=== PATIENT | female | born 1950 | race Two or more races ===

== ENCOUNTER 2016-05-24 10:19 | Observation (INO) | payer MEDICARE ==
[2016-05-24] MEDS ORDERED: ASPIRIN 81 MG TABLET, CHEWABLE PO ONE (10:41)
--- NOTE | 2016-05-24 10:41 | ER Document Report ---
ED Medical Screen (RME) - General Stated Complaint: CHEST PAIN Time seen by provider: 10:38 Mode of Arrival: Wheelchair Information source: Patient Notes: 66-year-old female presents to ED for funny feeling to the left side of her face. Started 2 weeks ago. States the time she gets short of breath and has some discomfort in her chest with pain in her right hand always been for 2 weeks. States she she went to urgent care this morning for the same symptoms and they sent her to the emergency room. I have greeted and performed a rapid initial assessment of this patient. A comprehensive ED assessment and evaluation of the patient, analysis of test results and completion of medical decision making process will be conducted by an additional ED providers. TRAVEL OUTSIDE OF THE [place] IN LAST 30 DAYS: No - Related Data Allergies/Adverse Reactions: Penicillins Allergy (Verified 12/26/15 15:11) Past Medical History - Past Medical History Cardiac Medical History: Reports: Hx Hypercholesterolemia, Hx Hypertension Pulmonary Medical History: Reports: Hx Asthma Endocrine Medical History: Reports: Hx Diabetes Mellitus Type 2 - Diet controlled. Patient is not sure if this is prediabetes or diabetes. Past Surgical History: Reports: Hx Section, Hx Cholecystectomy Physical Exam - Vital signs Vitals: Temp Pulse Resp BP Pulse Ox 98.9 F 75 16 138/61 H 95 05/24/16 10:35 05/24/16 10:35 05/24/16 10:35 05/24/16 10:35 05/24/16 10:35 Course - Vital Signs Vital signs: Temp Pulse Resp BP Pulse Ox 98.9 F 75 16 138/61 H 95 05/24/16 10:35 05/24/16 10:35 05/24/16 10:35 05/24/16 10:35 05/24/16 10:35
[2016-05-24 11:20] LABS: ABSOLUTE BASOPHILS # (AUTO) 0.1 10^3/uL (0.0-0.2); ABSOLUTE EOSINOPHILS # (AUTO) 0.1 10^3/uL (0.0-0.6); ABSOLUTE LYMPHOCYTES (AUTO) 1.9 10^3/uL (0.5-4.7); ABSOLUTE MONOCYTES (AUTO) 0.7 10^3/uL (0.1-1.4); ABSOLUTE NEUT (AUTO) 6.7 10^3/uL (1.7-8.2); BASOPHILS % (AUTO) 0.7 % (0-2); EOSINOPHILS % (AUTO) 1.3 % (0-6); HEMATOCRIT 38.6 % (36.0-47.0); HEMOGLOBIN 13.1 g/dL (12.0-15.5); HGB HCT DIFFERENCE 0.7; LYMPHOCYTES % (AUTO) 20.1 % (13-45); MEAN CORPUSCULAR HGB CONC 33.9 g/dL (32.0-36.0); MEAN CORPUSCULAR VOLUME 89 fl (80-97); MONOCYTES % (AUTO) 7.7 % (3-13); RED BLOOD COUNT 4.36 10^6/uL (3.72-5.28); SEGMENTED NEUTROPHILS % (AUTO) 70.2 % (42-78); WHITE BLOOD COUNT 9.5 10^3/uL (4.0-10.5)
[2016-05-24 11:34] LABS: PARTIAL THROMBOPLASTIN TIME 29.1 SEC (23.5-35.8)
[2016-05-24 11:36] LABS: ALANINE AMINOTRANSFERASE 34 U/L (9-52); ALBUMIN 4.3 g/dL (3.5-5.0); ALKALINE PHOSPHATASE 86 U/L (38-126); ANION GAP 10 (5-19); ASPARTATE AMINO TRANSFERASE 31 U/L (14-36); BILIRUBIN,DIRECT 0.1 mg/dL (0.0-0.4); BILIRUBIN,TOTAL 0.4 mg/dL (0.2-1.3); BLOOD UREA NITROGEN 11 mg/dL (7-20); CALCIUM 9.7 mg/dL (8.4-10.2); CARBON DIOXIDE 27 mmol/L (22-30); CHLORIDE 107 mmol/L (98-107); CREATINE KINASE 77 U/L (30-135); CREATININE RESULT 0.52 mg/dL (0.52-1.25); GLUCOSE 85 mg/dL (75-110); MAGNESIUM 2.2 mg/dL (1.6-2.3); POTASSIUM 4.1 mmol/L (3.6-5.0); SODIUM 143.8 mmol/L (137-145); TOTAL PROTEIN 7.3 g/dL (6.3-8.2)
[2016-05-24 11:47] LABS: CREATINE KINASE MB 0.36 ng/mL (<4.55); TROPONIN I < 0.012 ng/mL
--- NOTE | 2016-05-24 13:37 | EKG REPORT ---
SEVERITY:- BORDERLINE ECG - SINUS RHYTHM LVH BY VOLTAGE : Confirmed by: Mark Huff MD 24-May-2016 13:36:59
--- NOTE | 2016-05-24 16:32 | ER Document Report ---
ED Cardiac - General Chief Complaint: Chest Pain Stated Complaint: CHEST PAIN Mode of Arrival: Wheelchair Notes: Patient says she's been experiencing tightness in the anterior chest off and on over the last couple of weeks, seem to be worse yesterday and last night. When she has this tightness, she rests and it goes away. She does not have a history of any heart disease. Takes a baby aspirin daily. She denies associated shortness of breath or difficulty breathing. She did note left neck and facial twitching for the first time ever yesterday she had a mini stroke diagnosed last December in which she had numbness of her left face and neck and left side of her body, but she does not have any of those symptoms currently. She did not have twitching with that episode in December. TRAVEL OUTSIDE OF THE [place] IN LAST 30 DAYS: No - Related Data Allergies/Adverse Reactions: Penicillins Allergy (Verified 05/24/16 10:40) Past Medical History - General Information source: Patient - Social History Smoking Status: Never Smoker Chew tobacco use (# tins/day): No Frequency of alcohol use: None Drug Abuse: None Family History: Reviewed & Not Pertinent Patient has suicidal ideation: No Patient has homicidal ideation: No - Past Medical History Cardiac Medical History: Reports: Hx Hypercholesterolemia, Hx Hypertension Pulmonary Medical History: Reports: Hx Asthma Endocrine Medical History: Denies: Hx Diabetes Mellitus Type 2 - Diet controlled. Patient is not sure if this is prediabetes or diabetes. Past Surgical History: Reports: Hx Section, Hx Cholecystectomy Review of Systems - Review of Systems Notes: REVIEW OF SYSTEMS: CONSTITUTIONAL : Denies fever. EENT: Denies eye, ear, nose or mouth or throat pain or other symptoms. CARDIOVASCULAR: See history of present illness. RESPIRATORY: Denies cough, chest congestion, or shortness of breath. GASTROINTESTINAL: Denies abdominal pain or nausea, vomiting, or diarrhea. GENITOURINARY: Denies difficulty or painful urinating, urinary frequency, blood in urine. MUSCULOSKELETAL: Denies back or neck pain. Denies joint pain or swelling. SKIN: Denies rash or skin lesions. NEUROLOGICAL: Denies LOC or altered mental status. Denies headache. Denies sensory loss or motor deficits. See history of present illness. ALL OTHER SYSTEMS REVIEWED AND NEGATIVE. Physical Exam - Vital signs Vitals: Temp Pulse Resp BP Pulse Ox 98.9 F 75 16 138/61 H 95 03/20/17 10:35 05/24/16 10:35 05/24/16 10:35 05/24/16 10:35 05/24/16 10:35 Interpretation: Normal - Notes Notes: PHYSICAL EXAMINATION: GENERAL: Well-appearing, in no acute distress. Vital signs all essentially normal. HEAD: Atraumatic, normocephalic. EYES: Pupils equal round and reactive to light, extraocular movements intact. ENT: oropharynx clear without exudates. Moist mucous membranes. No facial asymmetry. NECK: Normal range of motion, supple. No bruits heard. LUNGS: Breath sounds clear and equal bilaterally. HEART: Regular rate and rhythm without murmurs. ABDOMEN: Soft, nontender. No guarding or rebound. BACK: No tenderness throughout entire back. EXTREMITIES: Normal range of motion without pain. NEUROLOGICAL: Normal speech, normal gait. Normal sensory, motor, and reflex exams. Awake, alert, and oriented x3. Cranial nerves normal. SKIN: Warm, dry, no rashes. Course - Re-evaluation Re-evalutation: 05/24/16 16:52 Patient's workup is essentially normal. However, her symptoms are very suggestive of angina. I've spoken with the hospitalist, Dr. Matias, who agrees for the patient to be an observation stay in telemetry. Patient and family made aware. - Vital Signs Vital signs: Temp Pulse Resp BP Pulse Ox 98.9 F 75 16 138/66 H 96 05/24/16 10:35 05/24/16 10:35 05/24/16 16:23 05/24/16 16:23 05/24/16 16:24 - Laboratory Result Diagrams: 05/24/16 10:50 05/24/16 10:50 - Diagnostic Test Radiology results interpreted by me: 05/24/16 16:31 Chest x-ray is normal. - EKG Interpretation by Ne EKG shows normal: Sinus rhythm Rate: Normal Rhythm: NSR - At 61 No acute changes of ischemia or STEMI. Discharge - Discharge Clinical Impression: Chest pain Qualifiers: Chest pain type: unspecified Qualified Code(s): R07.9 - Chest pain, unspecified Condition: Stable Disposition: ADMITTED OBSERVATION Admitting Provider: Hospitalist Unit Admitted: Telemetry
[2016-05-24] MEDS ORDERED: ONDANSETRON 4 MG TAB.RAPDIS PO PRN (18:08)
[2016-05-24] MEDS ORDERED: ACETAMINOPHEN 325 MG TABLET PO PRN (18:08)
[2016-05-24] MEDS ORDERED: ONDANSETRON HCL INJ/PF 4 MG/2 ML SDV IV PRN (18:08)
[2016-05-24] MEDS ORDERED: DEXTROSE 50%-WATER 25 GM/50 ML DISP.SYRIN IV PRN ×2 (18:17)
[2016-05-24] MEDS ORDERED: INSULIN LISPRO 100 UNIT/ML 3 ML VIAL SUBCUT PRN (18:17)
[2016-05-24] MEDS ORDERED: DEXTROSE 40% GEL 15 GM TUBE PO PRN ×2 (18:17)
[2016-05-24] MEDS ORDERED: GLUCAGON,HUMAN RECOMB 1 MG INJ IM PRN (18:17)
[2016-05-24] MEDS ORDERED: ALBUTEROL SULFATE HFA (90 MCG/PUFF) 8 GM MDI (1 MDI/ER DISP) IH PRN (18:17)
[2016-05-24] MEDS ORDERED: ALBUTEROL SULFATE HFA (90 MCG/PUFF) 200 PUFF/8.5 GM MDI IH PRN (18:26)
--- NOTE | 2016-05-24 18:26 | PDOC H&P ---
History of Present Illness Admission Date/PCP: 05/24/16 17:22 Patient complains of: Chest pain History of Present Illness: ERIC RICHTER is a 66 year old female who has a history of hypertension hyperlipidemia and a question with history diabetes who presents with a two- week history of chest pain. Patient reports that over the last 2 weeks she's had intermittent chest pain that she describes as a sharp substernal pain that radiates up into her left neck. The patient reports this occurs at rest and also with exertion. The last session was yesterday when she was walking and that she had reduction the pain with rest. Patient also reports that she's had episodes of chest pain that occurs after she eats and she begins coughing having choking sensation. The patient does have acid reflux but does not take anything at this time for it. Patient reports the pain today was a 8 out of 10. She does not have any shortness of breath. She did not have any palpitations or tachycardia. She denies any orthopnea or PND. The patient does take aspirin and has been compliant with her medications. Patient is uncertain as to whether she has diabetes. She's been told previously that she did but she reports her blood sugars have been normal in the past. Past Medical History Cardiac Medical History: Reports: Hyperlipidema, Hypertension Pulmonary Medical History: Reports: Asthma Endocrine Medical History: Denies: Diabetes Mellitus Type 2 - Diet controlled. Patient is not sure if this is prediabetes or diabetes. Renal/ Medical History: Reports: None Malignancy Medical History: Reports: None GI Medical History: Reports: Gastroesophageal Reflux Disease Musculoskeltal Medical History: Reports: None Skin Medical History: Reports: None Hematology: Reports: None Infectious Medical History: Reports: None Past Surgical History Past Surgical History: Reports: Section, Cholecystectomy Social History Information Source: Patient Lives with: Spouse/Significant other Smoking Status: Never Smoker Frequency of Alcohol Use: None Hx Recreational Drug Use: No Drugs: None Hx Prescription Drug Abuse: No - Advance Directive Resuscitation Status: Full Code Surrogate healthcare decision maker:: Family History Family History: Mother at age 82 and had coronary artery disease. Father's health history is unknown. Parental Family History Reviewed: Yes Children Family History Reviewed: No Sibling(s) Family History Reviewed.: No Medication/Allergy Home Medications: Albuterol Sulfate [Ventolin Hfa] 2 puff IH Q4HP PRN 05/24/16 Aspirin [Aspirin EC] 81 mg PO DAILY 05/24/16 Fluticasone/Salmeterol [Advair HFA 230-21 mcg Inhaler] 2 puff IH DAILY 05/24/16 Losartan Potassium [Cozaar 50 mg Tablet] 50 mg PO DAILY 05/24/16 Simvastatin [Zocor 40 mg Tablet] 40 mg PO QHS 05/24/16 Allergies/Adverse Reactions: Penicillins Allergy (Verified 05/24/16 10:40) Review of Systems Constitutional: ABSENT: chills, fever(s), headache(s), weight gain, weight loss Eyes: ABSENT: visual disturbances Ears: ABSENT: hearing changes Cardiovascular: PRESENT: as per HPI Respiratory: PRESENT: cough. ABSENT: dyspnea, hemoptysis, sputum Gastrointestinal: PRESENT: dysphagia, heartburn. ABSENT: melena, nausea, vomiting Genitourinary: ABSENT: dysuria, hematuria Integumentary: ABSENT: rash, wounds Neurological: ABSENT: abnormal gait, abnormal speech, confusion, dizziness, focal weakness, syncope Psychiatric: ABSENT: anxiety, depression Endocrine: ABSENT: cold intolerance, heat intolerance, polydipsia, polyuria Hematologic/Lymphatic: ABSENT: easy bleeding, easy bruising Physical Exam Vital Signs: Temp Pulse Resp BP Pulse Ox 98.9 F 75 16 138/66 H 96 05/24/16 10:35 05/24/16 10:35 05/24/16 16:23 05/24/16 16:23 05/24/16 16:24 General appearance: PRESENT: no acute distress, morbidly obese Head exam: PRESENT: atraumatic, normocephalic Eye exam: PRESENT: conjunctiva pink, EOMI, PERRLA. ABSENT: scleral icterus Ear exam: PRESENT: normal external ear exam Mouth exam: PRESENT: moist, tongue midline Neck exam: ABSENT: carotid bruit, JVD, lymphadenopathy, thyromegaly Respiratory exam: PRESENT: clear to auscultation [place]. ABSENT: rales, rhonchi, wheezes Cardiovascular exam: PRESENT: RRR. ABSENT: diastolic murmur, rubs, systolic murmur Pulses: PRESENT: normal dorsalis pedis pul Vascular exam: PRESENT: normal capillary refill GI/Abdominal exam: PRESENT: normal bowel sounds, soft. ABSENT: distended, guarding, mass, organolmegaly, rebound, tenderness Rectal exam: PRESENT: deferred Extremities exam: ABSENT: calf tenderness, clubbing, pedal edema Neurological exam: PRESENT: alert, awake, oriented to person, oriented to place , oriented to time, oriented to situation, CN II-XII grossly intact. ABSENT: motor sensory deficit Psychiatric exam: PRESENT: appropriate affect Skin exam: PRESENT: dry, intact, warm. ABSENT: cyanosis, rash Results Impressions: Chest X-Ray 05/24/16 10:41 IMPRESSION: NO SIGNIFICANT RADIOGRAPHIC FINDING IN THE CHEST. Assessment & Plan - Diagnosis (1) Chest pain Qualifiers: Chest pain type: unspecified Qualified Code(s): R07.9 - Chest pain, unspecified Is this a current diagnosis for this admission?: YesPlan: Is not clear whether this chest pain is cardiac or from acid reflux. Patient does have exertional pain is relieved with rest but also has pain that occurs after eating with episodes of coughing. We will monitor telemetry and check serial cardiac enzymes. Will order a Lexiscan stress test to be done if her enzymes are negative. Patient's already on aspirin and will continue with that. We'll start on Pepcid also. (2) Hyperlipidemia Is this a current diagnosis for this admission?: YesPlan: Continue with Zocor. (3) Hypertension Is this a current diagnosis for this admission?: YesPlan: We'll continue with Cozaar. (4) [id number] diabetes mellitus without complications Is this a current diagnosis for this admission?: YesPlan: Is not clear whether she has diabetes or not. Will check fingerstick blood sugars and cover with sliding scale insulin if needed. (5) Obesity (BMI 30-39.9) Is this a current diagnosis for this admission?: Yes (6) DVT prophylaxis Is this a current diagnosis for this admission?: YesPlan: Not indicated as she is ambulatory. (7) Full code status Is this a current diagnosis for this admission?: Yes - Time Time Spent: 50 to 70 Minutes - Plan Summary Plan Summary: Patient is admitted as an observation.
[2016-05-24 19:31] LABS: CREATINE KINASE MB 0.32 ng/mL (<4.55)
[2016-05-24 19:38] LABS: TROPONIN I < 0.012 ng/mL
[2016-05-24] MEDS ORDERED: SIMVASTATIN 40 MG TABLET PO SCH (22:00)
[2016-05-24] MEDS: FAMOTIDINE 20 MG TABLET PO SCH (23:59)
[2016-05-25 00:46] LABS: CREATINE KINASE MB < 0.22 ng/mL (<4.55); TROPONIN I < 0.012 ng/mL
[2016-05-25 07:22] LABS: HEMATOCRIT 36.9 % (36.0-47.0); HEMOGLOBIN 12.6 g/dL (12.0-15.5); HGB HCT DIFFERENCE 0.9; MEAN CORPUSCULAR HEMOGLOBIN 30.2 pg (27.0-33.4); MEAN CORPUSCULAR HGB CONC 34.1 g/dL (32.0-36.0); MEAN CORPUSCULAR VOLUME 89 fl (80-97); RED BLOOD COUNT 4.17 10^6/uL (3.72-5.28); RED CELL DISTRIBUTION WIDTH 13.2 % (11.5-14.0); WHITE BLOOD COUNT 8.8 10^3/uL (4.0-10.5)
[2016-05-25 07:41] LABS: ANION GAP 13 (5-19); BLOOD UREA NITROGEN 12 mg/dL (7-20); CALCIUM 8.9 mg/dL (8.4-10.2); CARBON DIOXIDE 24 mmol/L (22-30); CHLORIDE 107 mmol/L (98-107); CREATINE KINASE 65 U/L (30-135); CREATININE RESULT 0.57 mg/dL (0.52-1.25); GLUCOSE 92 mg/dL (75-110); MAGNESIUM 2.2 mg/dL (1.6-2.3); POTASSIUM 4.3 mmol/L (3.6-5.0); SODIUM 144.4 mmol/L (137-145)
[2016-05-25 07:54] LABS: CREATINE KINASE MB 0.23 ng/mL (<4.55)
[2016-05-25 08:00] LABS: TROPONIN I < 0.012 ng/mL
[2016-05-25] MEDS: FAMOTIDINE 20 MG TABLET PO SCH (09:44)
[2016-05-25] MEDS ORDERED: ASPIRIN 81 MG TABLET, ENT COATED PO SCH (10:00)
[2016-05-25] MEDS ORDERED: LOSARTAN POTASSIUM 50 MG TABLET PO SCH (10:00)
[2016-05-25] MEDS ORDERED: (PENDING PHARMACY ID) (Fluticasone/Salmeterol [Advair Hfa 230-21 Mcg Inhaler] 2 PUFF) IH SCH (10:00)
--- NOTE | 2016-05-25 13:09 | EKG REPORT ---
SEVERITY:- NORMAL ECG - SINUS RHYTHM : Confirmed by: Mark Huff MD 25-May-2016 13:08:39
[2016-05-25] MEDS ORDERED: REGADENOSON INJ 0.4 MG/5 ML DISP.SYRIN IV ONE (14:41)
[2016-05-25] MEDS ORDERED: AMINOPHYLLINE INJ/PF 250 MG/10 ML SDV IV ONE (14:41)
--- NOTE | 2016-05-25 18:01 | DRAGON STRESS TEST REPORT ---
INTRAVENOUS LEXISCAN CARDIOLITE STRESS TEST USING SINGLE PHOTON EMMISION COMPUTERIZED TOMOGRAPHIC. DATE OF PROCEDURE: May 25, 2016 INDICATION : Chest pain CARDIAC RISK FACTORS: Diabetes, hypertension, dyslipidemia RESTING EKG: Sinus rhythm without any baseline ST segment changes STRESS EKG: No significant changes noted with LexiScan bolus REASON FOR TERMINATION: Protocol. PROCEDURE REPORT: Baseline heart rate 92 beats per minute with blood pressure of 141/66. Patient had no significant complaints. Heart rate at 2 minutes post bolus 113 with a blood pressure of 154/66. 3 minutes post bolus heart rate 107 with blood pressure of 156/66. No significant EKG changes were noted. Patient had no significant complaints during the procedure or postprocedure. CONCLUSIONS: Normal EKG and hemodynamic response to IV LexiScan. NUCLEAR DATA: At rest the patient was given 13.96 millicuries of technetium 99 sestamibi injected intravenously. As per protocol rest gated SPECT images were obtained. Subsequently the patient was given intravenous LexiScan at a dose of 0.4 mg in 5 mL intravenously, followed by flush with normal saline. Subsequently the stress dose of 38.7 millicuries of technetium 99 sestamibi was injected intravenously. As per protocol stress gated images were obtained. NUCLEAR INTERPRETATION: Both raw and processed data were used for interpretation. Visual, qualitative, computer-generated quantitative data was used. There was good myocardial uptake of technetium compound. Motion artifact and soft tissue attenuations were noted. Increased visceral uptake was noted. No definitive areas of transient perfusion defect noted. No definitive areas of fixed perfusion defect or scars noted. EKG gated imaging showed LV EF at 69 %, rest and stress gated EF similar visually. T. I D. ratio was 1.10. Lung heart ratio noted to be within normal limits 0.30. No significant extracardiac and abnormal radiotracer activities were noted. RV free wall uptake was noted to be WNL. IMPRESSION: Also refer to comments under nuclear interpretation. Also test results needs to be interpreted in the context of pretest probability. 1. There is no definitive scintigraphic evidence of LexiScan induced myocardial ischemia. 2. There is no definitive scintigraphic evidence of myocardial infarction/scar. 3. EKG gated imaging shows left ejection fraction of approximately 69 %. 4. Clinical correlation requested as occasionally single vessel disease or balanced ischemia could be missed. In approximately 10% of the cases Lexiscan may not cause adequate vasodilatory stress. RECOMMENDATIONS: Aggressive risk factor modification, medical therapy. Clinical correlation with echocardiogram derived ejection fraction. Inability to exercise by itself can lead to increased cardiovascular event risks. Consider cardiology consultation and or follow-up if clinically indicated. I AM AVAILABLE FOR CARDIOLOGY CONSULTATION AND FOLLOWUP IF REQUESTED BY PMD Irvin Husain M.D., [facility] [employer], Board certified in cardiovascular diseases, Nuclear cardiology, Echocardiography Cardiac CT and cardiac MRI Ph. [phone] [facility]
[2016-05-25 18:02] VITALS: BP 122/57
--- NOTE | 2016-05-25 18:14 | PDOC DISCHARGE SUMMARY ---
General - Admit/Disc Date/PCP Admission Date/Primary Care Provider: 05/24/16 18:08 Discharge Date: 05/25/16 - Discharge Diagnosis (1) Chest pain Is this a current diagnosis for this admission?: Yes (2) [id number] diabetes mellitus without complications Is this a current diagnosis for this admission?: Yes (3) Hyperlipidemia Is this a current diagnosis for this admission?: Yes (4) Hypertension Is this a current diagnosis for this admission?: Yes - Additional Information Resuscitation Status: Full Code Discharge Diet: Cardiac - low fat, low salt, Diabetic - no concentrtated sweets Discharge Activity: Activity As Tolerated, Balance Activity w/Rest Home Medications: Albuterol Sulfate [Ventolin Hfa] 2 puff IH Q4HP PRN 05/24/16 Aspirin [Aspirin EC] 81 mg PO DAILY 05/24/16 Fluticasone/Salmeterol [Advair HFA 230-21 mcg Inhaler] 2 puff IH DAILY 05/24/16 Losartan Potassium [Cozaar 50 mg Tablet] 50 mg PO DAILY 05/24/16 Simvastatin [Zocor 40 mg Tablet] 40 mg PO QHS 05/24/16 History of Present Illness Patient complains of: Chest pain History of Present Illness: ERIC RICHTER is a 66 year old female, history of hypertension, hyperlipidemia, type II diabetes mellitus diet-controlled process to the hospital because of intermittent chest pain. Reportedly the patient has acid reflux as well. The patient went to the emergency room for evaluation and was referred for observation. For details please refer to history and physical examination performed by the admitting physician. Hospital Course Hospital Course: The patient was admitted to observation. Serial cardiac enzymes were obtained and they were negative. The patient was placed on oxygen, as well as aspirin. Pepcid was given. Patient's chest pain resolved. Eventually when the enzymes were negative a stress test was performed and reportedly no reversible ischemia. The patient improved. Cardiology reports that the patient was lost to follow-up and recommended outpatient evaluation. The rest of the hospital stays unremarkable. Physical Exam Vital Signs: Temp Pulse Resp BP Pulse Ox 98.6 F 73 16 122/57 L 97 05/25/16 18:00 05/25/16 18:00 05/25/16 18:00 05/25/16 18:00 05/25/16 18:00 Intake & Output 05/24/16 05/25/16 05/26/16 06:59 06:59 06:59 Weight 85.3 kg General appearance: PRESENT: no acute distress, cooperative, obese Head exam: PRESENT: normocephalic Eye exam: PRESENT: conjunctiva pink, EOMI Mouth exam: PRESENT: moist, neck supple Neck exam: ABSENT: JVD Respiratory exam: PRESENT: clear to auscultation [place] Cardiovascular exam: PRESENT: RRR. ABSENT: gallop GI/Abdominal exam: PRESENT: soft. ABSENT: distended, tenderness Extremities exam: ABSENT: pedal edema Neurological exam: PRESENT: alert, awake, oriented to person, oriented to place , oriented to time, oriented to situation Skin exam: PRESENT: dry, warm. ABSENT: cyanosis Results Laboratory Results: 05/25/16 06:30 05/25/16 06:30 05/25/16 05/25/16 06:30 06:30 WBC 8.8 RBC 4.17 Hgb 12.6 Hct 36.9 MCV 89 MCH 30.2 MCHC 34.1 RDW 13.2 Plt Count 220 Sodium 144.4 Potassium 4.3 Chloride 107 Carbon Dioxide 24 Anion Gap 13 BUN 12 Creatinine 0.57 Est GFR ( Amer) > 60 Est GFR (Non-Af Amer) > 60 Glucose 92 Calcium 8.9 Magnesium 2.2 05/25/16 05/25/16 05/25/16 00:02 00:02 06:30 Creatine Kinase 67 65 CK-MB (CK-2) < 0.22 Troponin I < 0.012 05/25/16 06:30 Creatine Kinase CK-MB (CK-2) 0.23 Troponin I < 0.012 Impressions: Chest X-Ray 05/24/16 10:41 IMPRESSION: NO SIGNIFICANT RADIOGRAPHIC FINDING IN THE CHEST. Qualifiers PATEINT BEING DISCHARGED WITH ANY OF THE FOLLOWING DIAGNOSIS?: No Plan Discharge Plan: Follow-up with primary care physician in one week. Follow-up with cardiology service Dr. Husain in 1-2 weeks. Time Spent: Less than 30 Minutes
== END 2016-05-25 18:21 | disposition home or self-care (01) ==
LOC: ER 10:19 → UNDOADMOB 17:22 → EH 17:22 → 4W 05-25 00:22
PROVIDERS: ADMIT Internal Medicine; ATTEND Internal Medicine
DX: R07.9 Chest pain, unspecified (principal); E11.9 Type 2 diabetes mellitus without complications; E78.5 Hyperlipidemia, unspecified; I10 Essential (primary) hypertension; K21.9 Gastro-esophageal reflux disease without esophagitis; J45.909 Unspecified asthma, uncomplicated; Z82.49 Family history of ischemic heart disease and other diseases of the circulatory system; E66.9 Obesity, unspecified; Z68.30 Body mass index [BMI] 30.0-30.9, adult; Z86.718 Personal history of other venous thrombosis and embolism; Z79.01 Long term (current) use of anticoagulants
CPT/HCPCS: 93005 ×2; 99285; 36415 ×2; 82553 ×2; 82962; 82550 ×2; 83735 ×2; 85025; 85027; 85610; 85730; 80048; 80053; 84484 ×2; 93017; 71020; 78452; 93010 ×2; G0378 ×3; A9500; J2785; A9270 ×6; J3490; J0280; Q9969

== ENCOUNTER 2016-06-03 21:37 | Emergency (ER) | payer MEDICARE ==
[2016-06-03 22:58] VITALS: BP 137/53
[2016-06-04 02:06] LABS: ABSOLUTE BASOPHILS # (AUTO) 0.1 10^3/uL (0.0-0.2); ABSOLUTE EOSINOPHILS # (AUTO) 0.3 10^3/uL (0.0-0.6); ABSOLUTE LYMPHOCYTES (AUTO) 2.6 10^3/uL (0.5-4.7); ABSOLUTE MONOCYTES (AUTO) 0.9 10^3/uL (0.1-1.4); ABSOLUTE NEUT (AUTO) 8.6 10^3/uL (1.7-8.2); EOSINOPHILS % (AUTO) 2.1 % (0-6); HEMATOCRIT 39.7 % (36.0-47.0); HEMOGLOBIN 13.6 g/dL (12.0-15.5); HGB HCT DIFFERENCE 1.1; LYMPHOCYTES % (AUTO) 20.6 % (13-45); MEAN CORPUSCULAR HEMOGLOBIN 30.5 pg (27.0-33.4); MEAN CORPUSCULAR HGB CONC 34.2 g/dL (32.0-36.0); MEAN CORPUSCULAR VOLUME 89 fl (80-97); MONOCYTES % (AUTO) 6.9 % (3-13); RED BLOOD COUNT 4.46 10^6/uL (3.72-5.28); SEGMENTED NEUTROPHILS % (AUTO) 69.4 % (42-78); WHITE BLOOD COUNT 12.4 10^3/uL (4.0-10.5)
[2016-06-04 02:14] LABS: APPEARANCE,URINE CLEAR; BILIRUBIN,URINE NEGATIVE (NEGATIVE); GLUCOSE, URINE NEGATIVE (NEGATIVE); KETONES,URINE NEGATIVE (NEGATIVE); LEUKOCYTE ESTERASE,URINE NEGATIVE (NEGATIVE); NITRITE,URINE NEGATIVE (NEGATIVE); PROTEIN,URINE NEGATIVE (NEGATIVE); URINE SPECIFIC GRAVITY 1.009; UROBILINOGEN,URINE NEGATIVE mg/dL (<2.0)
--- NOTE | 2016-06-04 02:26 | ER Document Report ---
ED General - General Chief Complaint: Flank Pain Stated Complaint: FLANK PAIN Time seen by provider: 02:25 Mode of Arrival: Ambulatory Information source: Patient TRAVEL OUTSIDE OF THE [place] IN LAST 30 DAYS: No - HPI Notes: Patient presents with report of left upper quadrant pain with some radiation through to the back onset at 4 AM this morning waking her up. The patient states pain was mild and then progressed during the course the day. She states the pain is somewhat intermittent. She denies any back injury or fever or chills. She describes a very minor cough. She denies any severe constipation. She does feel somewhat bloated through the abdomen. She previously had some nausea, but currently denies. Patient was just admitted into the hospital 10 days ago for chest pain and had a negative cardiac stress test performed. - Related Data Allergies/Adverse Reactions: Penicillins Allergy (Verified 05/24/16 10:40) Past Medical History - Social History Smoking Status: Never Smoker Chew tobacco use (# tins/day): No Frequency of alcohol use: None Drug Abuse: None Family History: Reviewed & Not Pertinent Patient has suicidal ideation: No Patient has homicidal ideation: No - Past Medical History Cardiac Medical History: Reports: Hx Hypercholesterolemia, Hx Hypertension Pulmonary Medical History: Reports: Hx Asthma Endocrine Medical History: Denies: Hx Diabetes Mellitus Type 2 - Diet controlled. Patient is not sure if this is prediabetes or diabetes. Renal/ Medical History: Denies: Hx Peritoneal Dialysis GI Medical History: Reports: Hx Gastroesophageal Reflux Disease Past Surgical History: Reports: Hx Section, Hx Cholecystectomy - Immunizations Hx Diphtheria, Pertussis, Tetanus Vaccination: Yes Review of Systems - Review of Systems Notes: REVIEW OF SYSTEMS: CONSTITUTIONAL : Denies fever, chills, or sweats. EENT: Denies eye, ear, throat, or mouth pain or symptoms. Denies nasal or sinus congestion or discharge. Denies throat, tongue, or mouth swelling or difficulty swallowing. CARDIOVASCULAR: Denies chest pain. Denies palpitations or racing or irregular heart beat. Denies ankle edema. RESPIRATORY: Denies shortness of breath, difficulty breathing, or wheezing. GASTROINTESTINAL: Denies vomiting, or diarrhea. Denies blood in vomitus, stools, or per rectum. Denies black, tarry stools. Denies constipation. GENITOURINARY: Denies difficulty urinating, painful urination, burning, frequency, blood in urine, or discharge. FEMALE GENITOURINARY: Denies vaginal bleeding, heavy or abnormal periods, irregular periods. Denies vaginal discharge or odor. MUSCULOSKELETAL: Denies neck pain or stiffness. Denies joint pain or swelling. SKIN: Denies rash, lesions or sores. HEMATOLOGIC : Denies easy bruising or bleeding. LYMPHATIC: Denies swollen, enlarged glands. NEUROLOGICAL: Denies confusion or altered mental status. Denies passing out or loss of consciousness. Denies dizziness or lightheadedness. Denies headache. Denies weakness or paralysis or loss of use of either side. Denies problems with gait or speech. Denies sensory loss, numbness, or tingling. Denies seizures. PSYCHIATRIC: Denies anxiety or stress. Denies depression, suicidal ideation, or homicidal ideation. ALL OTHER SYSTEMS REVIEWED AND NEGATIVE. Dictation was performed using [employer] voice recognition software Physical Exam - Vital signs Vitals: Temp Pulse Resp BP Pulse Ox 98.9 F 75 20 137/53 H 100 06/03/16 22:54 06/03/16 22:54 06/03/16 22:54 06/03/16 22:54 06/03/16 22:54 - Notes Notes: PHYSICAL EXAMINATION: GENERAL: Well-appearing, well-nourished and in no acute distress. HEAD: Atraumatic, normocephalic. EYES: Pupils equal round and reactive to light, extraocular movements intact, conjunctiva are normal. ENT: Nares patent, oropharynx clear without exudates. Moist mucous membranes. NECK: Normal range of motion, supple without lymphadenopathy LUNGS: Breath sounds clear to auscultation bilaterally and equal. No wheezes rales or rhonchi. HEART: Regular rate and rhythm without murmurs ABDOMEN: Soft obese abdomen. No guarding, no rebound. No masses appreciated. Patient is tender left upper quadrant and especially along the lower costal margin on the left. There is no gross bony deformity or crepitance. There is no erythema. Female : deferred Musculoskeletal: Normal range of motion, no pitting or edema. No cyanosis. Patient has pain to the left mid to lower back region. This pain is above the CVA region. There is no crepitance of bony deformity or significant erythema noted. NEUROLOGICAL: Cranial nerves grossly intact. Normal speech, normal gait. Normal sensory, motor exams PSYCH: Normal mood, normal affect. SKIN: Warm, Dry, normal turgor, no rashes or lesions noted. Course - Re-evaluation Re-evalutation: 06/04/16 04:25 06/04/16 04:27 Patient was given morphine and Zofran with relief of her discomfort. No evidence for acute NH or ischemia or pneumonia or suggestion for pulmonary embolus or diverticulitis or GI bleed or hepatitis or pancreatitis. Question gastritis, and the patient has just started Pepcid but is only had 1 dose after her recent admission where they found that reflux and gastritis was more accounting for her chest pain. Also question whether not bronchitis and costochondritis could be accounting for the patient's pain with a recent cough. We'll cover with Zithromax for possible bronchitis given the cough. - Vital Signs Vital signs: Temp Pulse Resp BP Pulse Ox 98.9 F 75 20 137/53 H 100 06/03/16 22:54 06/03/16 22:54 06/03/16 22:54 06/03/16 22:54 06/03/16 22:54 - Laboratory Result Diagrams: 06/04/16 01:55 06/04/16 01:55 Laboratory results interpreted by me: 06/04/16 06/04/16 06/04/16 01:55 01:55 01:55 WBC 12.4 H Absolute Neutrophils 8.6 H Sodium 145.5 H AST 58 H Urine Blood SMALL H - EKG Interpretation by Al EKG shows normal: Sinus rhythm Additional EKG results interpreted by me: 06/04/16 03:24 EKG as interpreted by ut showed normal sinus rhythm of 70. There is no gross evidence for acute NH or ischemia identified. There is LVH noted. There is no change from previous EKG reviewed from 05/25/16. Discharge - Discharge Clinical Impression: Costochondritis, acute, Bronchitis Abdominal pain Qualifiers: Abdominal location: left upper quadrant Qualified Code(s): R10.12 - Left upper quadrant pain Condition: Stable Disposition: HOME, SELF-CARE Instructions: Abdominal Pain ([facility]) Additional Instructions: Bronchitis You have acute bronchitis. This disease is an infection or inflammation of the air passageways in your lungs. Symptoms usually include cough, low grade fever, shortness of breath, and wheezing. The cough usually persists for a couple of weeks. Most cases of bronchitis get better without antibiotics. We prescribe antibiotics when we believe bacteria are damaging your airways, or if there's high risk the bronchitis will worsen into pneumonia. Increase your fluid intake. A cool mist humidifier may make your lungs more comfortable. An expectorant (cough medicine that loosens phlegm) can help. If you smoke, STOP!!! Recovery from bronchitis can be somewhat slow, but you should see improvement within a day or two. Repeated episodes of bronchitis may result in lung damage -- for example, chronic bronchitis, recurrent pneumonias, or emphysema. Call the doctor if you develop increasing fever, shortness of breath, chest pain, bloody sputum, or otherwise worsen. If you have not improved at all after several days, contact the physician. Costochondritis Your chest pain is coming from the rib cartilages in the chest wall. This is often caused by subtle straining of the ribs near the breastbone. The strain can occur from a mild injury, coughing or sneezing with a "cold," vigorous vomiting, or even from rib compression while sleeping. Often the pain doesn't begin until a couple of days after the strain. Persons with arthritis are especially prone to this type of pain, due to inflammation of the cartilage joints near the breast bone. But often, there is no clear reason why it happens. Rest from strenuous physical activity. This kind of chest pain is usually made worse by movement of the chest. Depending on the symptoms, we may prescribe medicine for pain and inflammation. Apply gentle warmth to the painful area for 15 minutes every hour or two. You should call contact the doctor immediately if things change. Further evaluation is needed if you develop a fever or cough, if the nature of the pain changes, or if you become short of breath. Gastritis You have an inflammation of the stomach called gastritis. This commonly causes upper abdominal pain, nausea, and vomiting. In severe cases, bleeding of the stomach lining can occur. Gastritis can be caused by bacteria or viruses , alcohol, or stomach-irritating drugs. Begin with sips of clear liquids. Take increasing amounts of fluid over the first 24 hours. Then start small amounts of bland foods (such as dry toast , applesauce, mashed potato). Gradually resume your usual diet. You should take antacids every two hours until the pain has subsided. Acid -suppressing drugs may be prescribed as well. Avoid aspirin, caffeine, tobacco , and alcohol. If the abdominal pain worsens, or there is evidence of major bleeding in the stomach (such as black, tarry stool, bloody or black vomit, or lightheadedness), you should return immediately. Call the doctor if you aren't improved in 24 to 36 hours. Prescriptions: Azithromycin [Zithromax 250 mg Tablet] 250 mg PO DAILY #4 tablet
[2016-06-04 02:28] LABS: ALANINE AMINOTRANSFERASE 34 U/L (9-52); ALBUMIN 4.5 g/dL (3.5-5.0); ALKALINE PHOSPHATASE 99 U/L (38-126); ANION GAP 14 (5-19); ASPARTATE AMINO TRANSFERASE 58 U/L (14-36); BILIRUBIN,DIRECT 0.3 mg/dL (0.0-0.4); BILIRUBIN,TOTAL 0.4 mg/dL (0.2-1.3); BLOOD UREA NITROGEN 10 mg/dL (7-20); CALCIUM 9.4 mg/dL (8.4-10.2); CARBON DIOXIDE 26 mmol/L (22-30); CHLORIDE 106 mmol/L (98-107); CREATININE RESULT 0.56 mg/dL (0.52-1.25); GLUCOSE 105 mg/dL (75-110); POTASSIUM 4.1 mmol/L (3.6-5.0); SODIUM 145.5 mmol/L (137-145); TOTAL PROTEIN 8.1 g/dL (6.3-8.2)
[2016-06-04] MEDS ORDERED: ONDANSETRON HCL INJ/PF 4 MG/2 ML SDV IV ONE (02:41)
[2016-06-04] MEDS ORDERED: MORPHINE SULFATE 10 MG/ML INJ IV ONE (02:42)
[2016-06-04] MEDS ORDERED: AZITHROMYCIN 250 MG TABLET PO ONE (04:25)
--- NOTE | 2016-06-04 10:53 | EKG REPORT ---
SEVERITY:- BORDERLINE ECG - SINUS RHYTHM LVH BY VOLTAGE : Confirmed by: Irvin Husain 04-Jun-2016 10:53:05
== END 2016-06-04 05:12 | disposition home or self-care (01) ==
LOC: ER 21:37
DX: M94.0 Chondrocostal junction syndrome [Tietze] (principal); K21.9 Gastro-esophageal reflux disease without esophagitis; J40 Bronchitis, not specified as acute or chronic; K29.70 Gastritis, unspecified, without bleeding; R10.12 Left upper quadrant pain; M54.5 Low back pain; R05 Cough; I10 Essential (primary) hypertension; I51.7 Cardiomegaly; J45.909 Unspecified asthma, uncomplicated; Z90.49 Acquired absence of other specified parts of digestive tract; Z88.0 Allergy status to penicillin
CPT/HCPCS: 93005; 99284; 96374; 96375; 36415; 83690; 85025; 80053; 81001; 84484; 71020; 74177; 93010; A9270; J2270; J2405

== ENCOUNTER → 2016-06-28 | Outpatient (CLI) | payer MEDICARE | LOC: WI 08:50 | PROVIDERS: ATTEND Physician Assistant | DX: Z12.31 Encounter for screening mammogram for malignant neoplasm of breast (principal) | CPT/HCPCS: 77067; G0202 ==

== ENCOUNTER 2016-11-21 21:21 | Observation (INO) | payer MEDICARE ==
--- NOTE | 2016-11-21 21:48 | RADIOLOGY REPORT (SQ) ---
EXAM DESCRIPTION: CT HEAD WITHOUT COMPLETED DATE/TIME: 11/21/2016 9:32 pm REASON FOR STUDY: stroke alert COMPARISON: None. TECHNIQUE: Axial images acquired through the brain without intravenous contrast. Images reviewed wi th bone, brain and subdural windows. Images stored on PACS. All CT scanners at this facility use dose modulation, iterative reconstruction, and/or weight based d osing when appropriate to reduce radiation dose to as low as reasonably achievable (ALARA). [facility]: Dose Right [facility]: CareDose [facility]: Dose Right [facility]: Teradose 4D [facility]: [employer] RADIATION DOSE: Up-to-date CT equipment and radiation dose reduction techniques were employed. CTDIv ol: 64.6 mGy. DLP: 1163 mGy-cm. mGy. LIMITATIONS: Motion artifact throughout the study FINDINGS: Motion artifact. On the images without motion, no acute intracranial hemorrhage, mass effect, or midline shift. No gr oss large territory acute ischemic change. Paranasal sinuses grossly clear. No skull fracture. IMPRESSION: Limited negative study COMMENT: Pertinent findings on the imaging study reported as a CRITICAL RESULT to Dr. Chappell At21:3 8 on 11/21/2016. Category of Critical Result: CT stroke alert Quality ID # [id number]: Final reports with documentation of one or more dose reduction techniques (e.g., Au tomated exposure control, adjustment of the mA and/or kV according to patient size, use of iterative reconstruction technique) TECHNICAL DOCUMENTATION: JOB ID: [id number] [employer]- All Rights Reserved
[2016-11-21 21:54] LABS: ABSOLUTE BASOPHILS # (AUTO) 0.1 10^3/uL (0.0-0.2); ABSOLUTE EOSINOPHILS # (AUTO) 0.2 10^3/uL (0.0-0.6); ABSOLUTE LYMPHOCYTES (AUTO) 2.6 10^3/uL (0.5-4.7); ABSOLUTE MONOCYTES (AUTO) 0.9 10^3/uL (0.1-1.4); ABSOLUTE NEUT (AUTO) 8.6 10^3/uL (1.7-8.2); BASOPHILS % (AUTO) 0.8 % (0-2); EOSINOPHILS % (AUTO) 1.4 % (0-6); HEMATOCRIT 37.7 % (36.0-47.0); HGB HCT DIFFERENCE 1.3; MEAN CORPUSCULAR HEMOGLOBIN 30.7 pg (27.0-33.4); MEAN CORPUSCULAR HGB CONC 34.5 g/dL (32.0-36.0); MEAN CORPUSCULAR VOLUME 89 fl (80-97); MONOCYTES % (AUTO) 7.6 % (3-13); RED BLOOD COUNT 4.24 10^6/uL (3.72-5.28); RED CELL DISTRIBUTION WIDTH 13.2 % (11.5-14.0); SEGMENTED NEUTROPHILS % (AUTO) 69.2 % (42-78); WHITE BLOOD COUNT 12.4 10^3/uL (4.0-10.5)
--- NOTE | 2016-11-21 21:57 | RADIOLOGY REPORT (SQ) ---
EXAM DESCRIPTION: CHEST SINGLE VIEW COMPLETED DATE/TIME: 11/21/2016 9:38 pm REASON FOR STUDY: stroke alert COMPARISON: Chest films 06/04/2016 EXAM PARAMETERS: NUMBER OF VIEWS: One view. TECHNIQUE: Single frontal radiographic view of the chest acquired. RADIATION DOSE: NA LIMITATIONS: Large patient, portable technique FINDINGS: LUNGS AND PLEURA: No opacities, masses or pneumothorax. No pleural effusion. MEDIASTINUM AND HILAR STRUCTURES: No masses. Contour normal. HEART AND VASCULAR STRUCTURES: Heart normal in size. Normal vasculature. BONES: No acute findings. HARDWARE: None in the chest. OTHER: No other significant finding. IMPRESSION: NO ACUTE RADIOGRAPHIC FINDING IN THE CHEST. TECHNICAL DOCUMENTATION: JOB ID: [id number]
--- NOTE | 2016-11-21 21:58 | ER Document Report ---
ED Neuro Symptoms/Deficit <LATANYAJOSUE - Last Filed: 11/21/16 23:28> - General Mode of Arrival: Wheelchair Information source: Patient, Relative Notes: Patient is a 66 year old female presenting to the emergency department for possible stroke symptoms. At 21:15 this evening the patient started feeling funny and was complaining of abdominal pain. Patient then became quiet and family noticed some "twitching to her left face." Patient states she has an abnormal sensation to the left side of her face. Patient then had an episode of incontinence prior to arrival. Patient had similar symptoms of left sided numbness/tingling in December of 2015. Patient had no motor deficits but had some decreased strength in the LUE 4/5 compared to the RUE. Patient was admitted and had an MRI/MRA on 12/26/2015 which were both negative and she then had a repeat MRI on 12/27/2016 for increased symptoms which was also negative. Patient is allergic to penicillin. TRAVEL OUTSIDE OF THE [place] IN LAST 30 DAYS: No <KIM DAVALOS - Last Filed: 11/22/16 00:10> - General Chief Complaint: S/S of Possible Stroke Stated Complaint: WEAKNESS DIFFICULTY SPEAKING Time Seen by Provider: 11/21/16 21:45 - Related Data Allergies/Adverse Reactions: Penicillins Allergy (Verified 05/24/16 10:40) Past Medical History - General Information source: Patient - Social History Smoking Status: Never Smoker Cigarette use (# per day): No Chew tobacco use (# tins/day): No Smoking Education Provided: No Frequency of alcohol use: None Drug Abuse: None Family History: None Patient has suicidal ideation: No Patient has homicidal ideation: No - Past Medical History Cardiac Medical History: Reports: Hx Hypercholesterolemia, Hx Hypertension Pulmonary Medical History: Reports: Hx Asthma GI Medical History: Reports: Hx Gastroesophageal Reflux Disease Past Surgical History: Reports: Hx Section, Hx Cholecystectomy - Immunizations Hx Diphtheria, Pertussis, Tetanus Vaccination: Yes <KIM DAVALOS - Last Filed: 11/22/16 00:10> Review of Systems - Review of Systems Constitutional: No symptoms reported EENT: No symptoms reported Cardiovascular: No symptoms reported Respiratory: No symptoms reported Gastrointestinal: See HPI, Abdominal pain Genitourinary: No symptoms reported Female Genitourinary: No symptoms reported Musculoskeletal: No symptoms reported Skin: No symptoms reported Hematologic/Lymphatic: No symptoms reported Neurological/Psychological: See HPI, Other -: Yes All other systems reviewed and negative <KIM DAVALOS - Last Filed: 11/22/16 00:10> Physical Exam - Notes Notes: GENERAL: Alert, interacts well. Mild distress. HEAD: Normocephalic, atraumatic. When smiling it seems that the left facial muscles pull back normally but the right facial muscles appear weak. EYES: Appear normal. Pupils equal, round, and reactive to light. ENT: Moist mucus membranes, tongue deviates slightly to the left. NECK: Full range of motion. Supple. Trachea midline. LUNGS: Clear to auscultation bilaterally, no wheezes, rales, or rhonchi. No respiratory distress. HEART: Regular rate and rhythm. No murmurs, gallops, or rubs. ABDOMEN: Soft, non-tender. Non-distended. Normal bowel sounds. EXTREMITIES: Moves all 4 extremities spontaneously. Normal polish compounder strength. No edema. Able to lift both legs about 12 inches off the bed and maintain. NEUROLOGICAL: Alert and oriented x3. Normal speech. GCS 15. PSYCH: Normal affect, normal mood. SKIN: Warm, dry, normal turgor. No rashes or lesions noted. <KIM DAVALOS - Last Filed: 11/22/16 00:10> Course - Re-evaluation Re-evalutation: 11/21/16 22:08 The patient's symptoms and physical findings are quite confusing. The patient' s speech is quite clear at this time, although the triage nurse reported she had trouble repeating a phrase when she checked in. She has normal motor function on the left face where she complains she has these twitching symptoms, she seems to have weak motor function on the right face which her daughter claims is new and that she normally has a symmetrical smile. She has equal polish compounder on both hands which is normal and equal leg lift strength on each leg which is normal. Her tongue does deviate slightly to the left but not sure this is involuntary. She complained of left-sided numbness and weakness on a visit here almost 1 year ago and at that time it documented 4 out of 5 muscle strength on the left and normal sensation to light touch throughout. MRIs and MRAs during that visit remained normal. We are not able to get an MRI done at this time as there is no digital tech weapons designer to be called in. Given the complexity of her history and physical and past medical history and minimal symptoms at this point, I do not think thrombolytic therapy would be indicated or worth the risk. - Laboratory Result Diagrams: 11/21/16 21:40 11/21/16 21:40 Laboratory results interpreted by me: 11/21/16 21:40 WBC 12.4 H Absolute Neutrophils 8.6 H - Diagnostic Test Radiology reviewed: Image reviewed, Reports reviewed - CT scan of the brain shows no acute findings, is a limited study due to motion. Chest x-ray does not show any acute process. - EKG Interpretation by Me EKG shows normal: Sinus rhythm, [place], Intervals, QRS Complexes, ST-T Waves Rate: Normal - 82 Rhythm: NSR When compared to previous EKG there are: No significant change - Consults Dr. Hamm Time consulted: 23:20 Consulted provider: will come to ER - Telemetry observation <JOSUE PELAEZ - Last Filed: 11/21/16 23:28> - Laboratory Result Diagrams: 11/21/16 21:40 11/21/16 21:40 Laboratory results interpreted by me: 11/21/16 21:40 WBC 12.4 H Absolute Neutrophils 8.6 H <KIM DAVALOS - Last Filed: 11/22/16 00:10> ED [employer]/Exc Criteria ED NIH Stroke Scale Discharge - Discharge Admitting Provider: Hospitalist Unit Admitted: Telemetry Scribe Attestation: 11/21/16 23:30 I personally performed the services described in the documentation, reviewed and edited the documentation which was dictated to the scribe in my presence, and it accurately records my words and actions. <JOSUE PELAEZ - Last Filed: 11/21/16 23:28> <KIM DAVALOS - Last Filed: 11/22/16 00:10> - Discharge Clinical Impression: Transient ischemic attack (TIA) Qualifiers: Transient cerebral ischemia type: unspecified Qualified Code(s): G45.9 - Transient cerebral ischemic attack, unspecified Scribe Documentation - Scribe Written by Marcin:: Marcin Covarrubias 11/22/2016 12:08 acting as scribe for :: Latanya <KIM DAVALOS - Last Filed: 11/22/16 00:10>
[2016-11-21 21:59] LABS: PARTIAL THROMBOPLASTIN TIME 28.8 SEC (23.5-35.8)
[2016-11-21 22:06] LABS: PROTHROMBIN TIME 11.5 SEC (11.4-15.4)
[2016-11-21 22:08] LABS: ALANINE AMINOTRANSFERASE 26 U/L (9-52); ALBUMIN 4.2 g/dL (3.5-5.0); ALKALINE PHOSPHATASE 111 U/L (38-126); ANION GAP 11 (5-19); ASPARTATE AMINO TRANSFERASE 32 U/L (14-36); BILIRUBIN,DIRECT 0.3 mg/dL (0.0-0.4); BILIRUBIN,TOTAL 0.3 mg/dL (0.2-1.3); BLOOD UREA NITROGEN 10 mg/dL (7-20); CALCIUM 9.2 mg/dL (8.4-10.2); CARBON DIOXIDE 28 mmol/L (22-30); CHLORIDE 105 mmol/L (98-107); CREATINE KINASE 93 U/L (30-135); CREATININE RESULT 0.67 mg/dL (0.52-1.25); GLUCOSE 150 mg/dL (75-110); POTASSIUM 3.4 mmol/L (3.6-5.0); SODIUM 143.8 mmol/L (137-145); TOTAL PROTEIN 7.5 g/dL (6.3-8.2)
[2016-11-21 22:19] LABS: CREATINE KINASE MB 0.61 ng/mL (<4.55)
[2016-11-21 22:20] LABS: TROPONIN I < 0.012 ng/mL
--- NOTE | 2016-11-21 23:27 | EKG REPORT ---
SEVERITY:- NORMAL ECG - SINUS RHYTHM : Confirmed by: Irvin Husain 21-Nov-2016 23:27:23
[2016-11-21] MEDS ORDERED: GLUCAGON,HUMAN RECOMB 1 MG INJ IM PRN (23:33)
[2016-11-21] MEDS ORDERED: ACETAMINOPHEN 325 MG TABLET PO PRN (23:33)
[2016-11-21] MEDS ORDERED: DOCUSATE SODIUM 100 MG CAPSULE PO PRN (23:33)
[2016-11-21] MEDS ORDERED: DEXTROSE 50%-WATER 25 GM/50 ML DISP.SYRIN IV PRN ×2 (23:33)
[2016-11-21] MEDS ORDERED: MAGNESIUM HYDROXIDE SUSP 30 ML UDCUP PO PRN (23:33)
[2016-11-21] MEDS ORDERED: DEXTROSE 40% GEL 15 GM TUBE PO PRN ×2 (23:33)
[2016-11-21] MEDS ORDERED: INSULIN LISPRO 100 UNIT/ML 3 ML VIAL SUBCUT PRN (23:33)
[2016-11-21] MEDS ORDERED: ATORVASTATIN CALCIUM 80 MG TABLET PO ONE (23:45)
[2016-11-22 05:43] LABS: ABSOLUTE BASOPHILS # (AUTO) 0.1 10^3/uL (0.0-0.2); ABSOLUTE EOSINOPHILS # (AUTO) 0.2 10^3/uL (0.0-0.6); ABSOLUTE MONOCYTES (AUTO) 0.7 10^3/uL (0.1-1.4); ABSOLUTE NEUT (AUTO) 7.6 10^3/uL (1.7-8.2); BASOPHILS % (AUTO) 0.7 % (0-2); EOSINOPHILS % (AUTO) 1.8 % (0-6); HEMATOCRIT 35.6 % (36.0-47.0); HEMOGLOBIN 12.4 g/dL (12.0-15.5); HGB HCT DIFFERENCE 1.6; LYMPHOCYTES % (AUTO) 18.6 % (13-45); MEAN CORPUSCULAR HEMOGLOBIN 30.7 pg (27.0-33.4); MEAN CORPUSCULAR HGB CONC 34.7 g/dL (32.0-36.0); MEAN CORPUSCULAR VOLUME 89 fl (80-97); MONOCYTES % (AUTO) 6.9 % (3-13); RED BLOOD COUNT 4.03 10^6/uL (3.72-5.28); RED CELL DISTRIBUTION WIDTH 13.1 % (11.5-14.0); WHITE BLOOD COUNT 10.5 10^3/uL (4.0-10.5)
--- NOTE | 2016-11-22 05:48 | PDOC H&P ---
History of Present Illness Admission Date/PCP: 11/21/16 23:33 Patient complains of: Left facial weakness History of Present Illness: ERIC RICHTER is a 66 year old female with a past medical history of diet- controlled diabetes, obesity, hypertension and dyslipidemia. She has been her usual state of health until approximately 2 hours prior to presentation developing dysesthesia twitching and weakness to her left face which resolved spontaneously without intervention. Additionally she had abdominal pain and a single episode of urinary incontinence prompting to seek evaluation emergency room. She denies previous episode, hypoglycemia, changes in medications. She is currently asymptomatic with an unremarkable workup and referred to the hospitalist for evaluation. Patient admits to untreated anxiety. Past Medical History Cardiac Medical History: Reports: Hyperlipidema, Hypertension Pulmonary Medical History: Reports: Asthma Endocrine Medical History: Denies: Diabetes Mellitus Type 2 - Diet controlled. Patient is not sure if this is prediabetes or diabetes. GI Medical History: Reports: Gastroesophageal Reflux Disease Past Surgical History Past Surgical History: Reports: Appendectomy, Section, Cholecystectomy , Hysterectomy Social History Information Source: Patient Lives with: Family Smoking Status: Never Smoker Frequency of Alcohol Use: None Hx Recreational Drug Use: No Drugs: None Hx Prescription Drug Abuse: No - Advance Directive Resuscitation Status: Full Code Family History Family History: CVA Parental Family History Reviewed: Yes Children Family History Reviewed: Yes Sibling(s) Family History Reviewed.: Yes Medication/Allergy Home Medications: Albuterol Sulfate [Ventolin Hfa] 2 puff IH Q4HP PRN 05/24/16 Aspirin [Aspirin EC] 81 mg PO DAILY 05/24/16 Fluticasone/Salmeterol [Advair HFA 230-21 mcg Inhaler] 2 puff IH DAILY 05/24/16 Losartan Potassium [Cozaar 50 mg Tablet] 50 mg PO DAILY 05/24/16 Simvastatin [Zocor 40 mg Tablet] 40 mg PO QHS 05/24/16 Montelukast Sodium [Singulair 10 mg Tablet] 10 mg PO QHS 11/22/16 Allergies/Adverse Reactions: Penicillins Allergy (Verified 05/24/16 10:40) Review of Systems Constitutional: ABSENT: chills, fever(s), headache(s), weight gain, weight loss Eyes: ABSENT: visual disturbances Ears: ABSENT: hearing changes Cardiovascular: ABSENT: chest pain, dyspnea on exertion, edema, orthropnea, palpitations Respiratory: ABSENT: cough, hemoptysis Gastrointestinal: ABSENT: abdominal pain, constipation, diarrhea, hematemesis, hematochezia, nausea, vomiting Genitourinary: ABSENT: dysuria, hematuria Musculoskeletal: ABSENT: joint swelling Integumentary: ABSENT: rash, wounds Neurological: ABSENT: abnormal gait, abnormal speech, confusion, dizziness, focal weakness, syncope Psychiatric: PRESENT: anxiety Endocrine: ABSENT: cold intolerance, heat intolerance, polydipsia, polyuria Hematologic/Lymphatic: ABSENT: easy bleeding, easy bruising Physical Exam Vital Signs: Temp Pulse Resp BP Pulse Ox 98.2 F 63 18 113/52 L 97 11/22/16 03:17 11/22/16 04:00 11/22/16 04:00 11/22/16 04:00 11/22/16 04:00 Intake & Output 11/20/16 11/21/16 11/22/16 11:59 11:59 11:59 Weight 83.1 kg General appearance: PRESENT: cooperative, obese Head exam: PRESENT: atraumatic, normocephalic Eye exam: PRESENT: conjunctiva pink, EOMI, PERRLA. ABSENT: scleral icterus Ear exam: PRESENT: normal external ear exam Mouth exam: PRESENT: moist, tongue midline Neck exam: ABSENT: carotid bruit, JVD, lymphadenopathy, thyromegaly Respiratory exam: PRESENT: clear to auscultation [place]. ABSENT: rales, rhonchi, wheezes Cardiovascular exam: PRESENT: RRR. ABSENT: diastolic murmur, rubs, systolic murmur Pulses: PRESENT: normal dorsalis pedis pul Vascular exam: PRESENT: normal capillary refill GI/Abdominal exam: PRESENT: normal bowel sounds, soft. ABSENT: distended, guarding, mass, organolmegaly, rebound, tenderness Rectal exam: PRESENT: deferred Extremities exam: PRESENT: full ROM. ABSENT: calf tenderness, clubbing, pedal edema Neurological exam: PRESENT: alert, awake, oriented to person, oriented to place , oriented to time, oriented to situation, CN II-XII grossly intact. ABSENT: motor sensory deficit Psychiatric exam: PRESENT: anxious Skin exam: PRESENT: dry, intact, warm. ABSENT: cyanosis, rash Results Impressions: Chest X-Ray 11/21/16 21:25 IMPRESSION: NO ACUTE RADIOGRAPHIC FINDING IN THE CHEST. Head CT 11/21/16 21:25 IMPRESSION: Limited negative study Assessment & Plan - Diagnosis (1) TIA (transient ischemic attack) Qualifiers: Transient cerebral ischemia type: unspecified Qualified Code(s): G45.9 - Transient cerebral ischemic attack, unspecified Is this a current diagnosis for this admission?: Yes Plan: CVA care set observation on monitored bed, aspirin, Lipitor, permissive hypertension follow-up lipid profile and A1c (2) Anxiety Is this a current diagnosis for this admission?: Yes Plan: Evaluate TSH consider SSRI (3) Hyperlipidemia Is this a current diagnosis for this admission?: Yes Plan: Empiric full dose Lipitor follow-up profile (4) Hypertension Is this a current diagnosis for this admission?: Yes Plan: Vasotec as needed systolic pressure greater than 200 (5) Obesity (BMI 30-39.9) Is this a current diagnosis for this admission?: No Plan: Evaluate TSH consider dietitian consult. - Time Time Spent: 30 to 50 Minutes
[2016-11-22 05:59] LABS: ANION GAP 8 (5-19); BLOOD UREA NITROGEN 9 mg/dL (7-20); CARBON DIOXIDE 27 mmol/L (22-30); CHLORIDE 108 mmol/L (98-107); CHOLESTEROL 107.47 mg/dL (0-200); CREATININE RESULT 0.54 mg/dL (0.52-1.25); Direct HDL 36 mg/dL (>40); GLUCOSE 89 mg/dL (75-110); POTASSIUM 4.3 mmol/L (3.6-5.0); TRIGLYCERIDES 98 mg/dL (<150)
[2016-11-22 06:09] LABS: DIRECT LDL 57 mg/dL (<100)
--- NOTE | 2016-11-22 08:56 | RADIOLOGY REPORT (SQ) ---
EXAM DESCRIPTION: MRI HEAD WITHOUT COMPLETED DATE/TIME: 11/22/2016 8:25 am REASON FOR STUDY: rr face weakness, L face twitching, tongue deviate COMPARISON: CT dated 11/21/2016. TECHNIQUE: Multiplanar imaging includes non-contrasted T1, T2, FLAIR, and diffusion with ADC map seq uences. Images stored on PACS. LIMITATIONS: None. FINDINGS: ANATOMY: No anomalies. Normal vascular flow voids. Pituitary fossa normal. CSF SPACES: Normal in size and contour. No hemorrhage. CEREBRUM: Sulci and gyri normal in size and contour. Normal white matter signal on FLAIR imaging. No evidence of hemorrhage, mass, or extraaxial fluid collection. POSTERIOR FOSSA: No signal alteration. No hemorrhage. No edema, masses or mass effect. Internal shanel tory canals, cerebello-pontine angles, mastoids normal. DIFFUSION IMAGING: Negative for acute or sub-acute infarction. ORBITS: No masses. Globes normal. PARANASAL SINUSES: No fluid levels. Mucosa normal. OTHER: No other significant finding. IMPRESSION: NORMAL MRI OF THE BRAIN WITHOUT INTRAVENOUS GADOLINIUM CONTRAST. EVIDENCE OF ACUTE STROKE: NO. TECHNICAL DOCUMENTATION: JOB ID: [id number] [employer]- All Rights Reserved
[2016-11-22] MEDS ORDERED: ASPIRIN 325 MG TABLET, ENT COATED PO SCH (10:00)
[2016-11-22] MEDS: HEPARIN SOD (PORCINE) 5,000 UNIT/ML 1 ML SYRINGE SUBCUT SCH ×3 (10:02→22:16)
[2016-11-22] MEDS: LOSARTAN POTASSIUM 50 MG TABLET PO SCH (10:03)
--- NOTE | 2016-11-22 12:59 | Progress Note ---
Provider Note Provider Note: Pt seen, examined, and chart reviewed. Pt's MRI is normal. No acute findings. Pt did complain about back pain and abd pain. Will write for Lidoderm patch for back pain. Abd pain will place on PPI.
--- NOTE | 2016-11-22 15:58 | RADIOLOGY REPORT (SQ) ---
EXAM DESCRIPTION: CAROTID DOPPLER COMPLETED DATE/TIME: 11/22/2016 2:53 pm REASON FOR STUDY: tia COMPARISON: 01/05/2016 TECHNIQUE: Grayscale ultrasound, Doppler velocity and spectra, and color Doppler images acquired of the extra-cranial carotid and vertebral arteries. Images stored on PACS. LIMITATIONS: Body habitus. FINDINGS: RIGHT CAROTID CCA Velocities: Within normal limits. ICA Velocities Peak systolic 0.99 m/s. End diastolic 0.37 m/s. Proximal ICA/CCA peak systolic ratio 1.0. Spectra normal. No significant plaque. LEFT CAROTID CCA Velocities: Within normal limits. ICA Velocities Peak systolic 1.12 m/s. End diastolic 0.27 m/s. Proximal ICA/CCA peak systolic ratio 1.1. Spectra normal. No significant plaque. VERTEBRAL ARTERIES: Antegrade flow. Normal waveforms. SUBCLAVIAN ARTERIES: Not imaged. OTHER: No other significant finding. IMPRESSION: NO HEMODYNAMICALLY SIGNIFICANT STENOSIS. COMMENT: Quality ID #[id number]: Velocity criteria are extrapolated from the diameter data as defined by t he Society of Radiologists in Ultrasound Consensus Conference. Radiology 2003: 229; 340-346. TECHNICAL DOCUMENTATION: JOB ID: [id number]- All Rights Reserved
--- NOTE | 2016-11-22 19:08 | PDOC PROGRESS REPORT ---
Subjective Progress Note for:: 11/22/16 Subjective:: Pt with complaint of back pain and abd pain. Pt states that she is feeling well. Physical Exam Vital Signs: Temp Pulse Resp BP Pulse Ox 98.6 F 73 16 114/48 L 96 11/22/16 16:15 11/22/16 16:15 11/22/16 16:15 11/22/16 16:15 11/22/16 16:15 Intake & Output 11/21/16 11/22/16 11/23/16 06:59 06:59 06:59 Intake Total 25 1200 Output Total 0 Balance 25 1200 Weight 83.1 kg 83.1 kg General appearance: PRESENT: no acute distress, well-developed, well-nourished Head exam: PRESENT: atraumatic, normocephalic Eye exam: PRESENT: conjunctiva pink, EOMI. ABSENT: scleral icterus Ear exam: PRESENT: normal external ear exam Mouth exam: PRESENT: moist, tongue midline Neck exam: ABSENT: carotid bruit, JVD, lymphadenopathy, thyromegaly Respiratory exam: PRESENT: accessory muscle use Cardiovascular exam: PRESENT: RRR. ABSENT: diastolic murmur, rubs, systolic murmur Pulses: PRESENT: normal dorsalis pedis pul Vascular exam: PRESENT: normal capillary refill GI/Abdominal exam: PRESENT: normal bowel sounds, soft. ABSENT: distended, guarding, mass, organolmegaly, rebound, tenderness Rectal exam: PRESENT: deferred Extremities exam: PRESENT: other - Lumbar 3-4 tenderness to palpation Neurological exam: PRESENT: alert, awake, oriented to person, oriented to place , oriented to time, oriented to situation, CN II-XII grossly intact. ABSENT: motor sensory deficit Psychiatric exam: PRESENT: appropriate affect, normal mood. ABSENT: homicidal ideation, suicidal ideation Skin exam: PRESENT: dry, intact, warm. ABSENT: cyanosis, rash Results Laboratory Results: 11/22/16 05:17 11/22/16 05:17 11/22/16 11/22/16 11/22/16 05:17 05:17 05:17 WBC 10.5 RBC 4.03 Hgb 12.4 Hct 35.6 L MCV 89 MCH 30.7 MCHC 34.7 RDW 13.1 Plt Count 238 Seg Neutrophils % 72.0 Lymphocytes % 18.6 Monocytes % 6.9 Eosinophils % 1.8 Basophils % 0.7 Absolute Neutrophils 7.6 Absolute Lymphocytes 2.0 Absolute Monocytes 0.7 Absolute Eosinophils 0.2 Absolute Basophils 0.1 Sodium 143.0 Potassium 4.3 Chloride 108 H Carbon Dioxide 27 Anion Gap 8 BUN 9 Creatinine 0.54 Est GFR ( Amer) > 60 Est GFR (Non-Af Amer) > 60 Glucose 89 Calcium 9.0 Magnesium 2.2 Triglycerides 98 Cholesterol 107.47 LDL Cholesterol Direct 57 VLDL Cholesterol 20.0 HDL Cholesterol 36 L Impressions: Chest X-Ray 11/21/16 21:25 IMPRESSION: NO ACUTE RADIOGRAPHIC FINDING IN THE CHEST. Head CT 11/21/16 21:25 IMPRESSION: Limited negative study Carotid Doppler Study 11/22/16 00:00 IMPRESSION: NO HEMODYNAMICALLY SIGNIFICANT STENOSIS. Head MRI 11/22/16 00:00 IMPRESSION: NORMAL MRI OF THE BRAIN WITHOUT INTRAVENOUS GADOLINIUM CONTRAST. EVIDENCE OF ACUTE STROKE: NO. Assessment & Plan - Diagnosis (1) TIA (transient ischemic attack) Qualifiers: Transient cerebral ischemia type: unspecified Qualified Code(s): G45.9 - Transient cerebral ischemic attack, unspecified Is this a current diagnosis for this admission?: Yes Plan: Will add plavix to treatment plan (2) Anxiety Is this a current diagnosis for this admission?: Yes Plan: Supportive care. (3) Hyperlipidemia Is this a current diagnosis for this admission?: Yes Plan: Statin (4) Hypertension Is this a current diagnosis for this admission?: Yes Plan: Losartan (5) Leukocytosis Is this a current diagnosis for this admission?: Yes Plan: Resolved. - Time Time Spent with patient: 15-24 minutes
[2016-11-22] MEDS ORDERED: ATORVASTATIN CALCIUM 80 MG TABLET PO SCH (22:00)
[2016-11-23] MEDS: HEPARIN SOD (PORCINE) 5,000 UNIT/ML 1 ML SYRINGE SUBCUT SCH ×2 (05:30→14:50)
[2016-11-23] MEDS: LOSARTAN POTASSIUM 50 MG TABLET PO SCH (09:31)
--- NOTE | 2016-11-23 09:48 | Physician Advisory Note ---
Physician Advisor ProgressNote .: Pursuant to the plan for [facility], I have reviewed the medical record for this patient. Physician Advisor Statement: Status: Medicare pt w/nonspecific sx constellation - could have TIA, could have anxiety , could have temporary peripheral nerve irritation. MRI neg. Sx resolved/ resolving. Reasons for keeping 2nd MN are not explicitly documented, may be "[id number]"-related (awaiting add'l tests being done). Sounds appropriately Obs. Suspect d/c likely today. - If attending finds a clinical issue that is seriously concerning, please document explicitly; status will be re-evaluated tomorrow if pt still here. CK
[2016-11-23] MEDS ORDERED: ASPIRIN 81 MG TABLET, ENT COATED PO SCH (10:00)
[2016-11-23] MEDS ORDERED: LIDOCAINE 5% (700 MG) TRANSDERMAL ADH..PATCH TP SCH (10:00)
[2016-11-23] MEDS ORDERED: CLOPIDOGREL BISULFATE 75 MG TABLET PO SCH (10:00)
[2016-11-23] MEDS ORDERED: PANTOPRAZOLE SODIUM 40 MG VIAL IV SCH (10:00)
--- NOTE | 2016-11-23 12:16 | XCELERA REPORT ---
[address] [address] Transthoracic Echocardiogram Report Name: ERIC RICHTER Age: 66 yrs Gender: Female : 1950 Patient Status: Inpatient Patient Location: [address] [place], [place] [address] Study Date: 11/23/2016 08:57 AM Height: 57 in Weight: 182 lb BSA: 1.7 m2 Procedure: A complete two-dimensional transthoracic echocardiogram was performed (2D, M-mode, spectral and color flow Doppler). The study was technically difficult with many images being suboptimal in quality. Reason For Study: TIA Ordering Physician: CHELLE MONTES Performed By: Martha Smith Interpretation Summary The left ventricular ejection fraction is normal. Wall motion cannot be accurately commented on, but no definite regional wall motion abnormalities noted. There is normal left ventricular wall thickness. Doppler measurements suggest pseudonormalized left ventricular relaxation, which is associated with grade II/IV or mild to moderate diastolic dysfunction The right ventricular systolic function is normal. The left atrial size is normal. The right atrium is normal in size There is a trace amount of mitral regurgitation There is no mitral valve stenosis. No aortic regurgitation is present. There is no aortic valve stenosis There is a trace or physiologic amount of tricuspid regurgitation Tricuspid regurgitation jet envelope not well defined to measure RV systolic pressure accurately. The aortic root is not well visualized. The inferior vena cava appeared normal and decreased > 50% with respiration (RAP 5-10 mmHg) There is no pericardial effusion. No definite cardiac source of CVA/TIA noted on this particular trans- thoracic study. Consider SHAMAR if clinically indicated. May consider mobile cardiac telemetry monitoring (MCT) for ruling out transient AFIB. MMode/2D Measurements & Calculations RVDd: 3.2 cm LVIDd: 3.8 cm FS: 38.3 % Ao root diam: 2.1 cm IVSd: 0.84 cm LVIDs: 2.4 cm EDV(Teich): 63.7 ml LVPWd: 0.83 cm ESV(Teich): 19.5 ml Ao root area: 3.6 cm2 EF(Teich): 69.3 % LA dimension: 3.1 cm Doppler Measurements & Calculations MV E max td: MV P1/2t max td: Ao V2 max: LV V1 max P.1 cm/sec 106.1 cm/sec 164.0 cm/sec 5.6 mmHg MV A max td: MV P1/2t: 58.1 msec Ao max PG: LV V1 max: 72.6 cm/sec 10.8 mmHg 118.5 cm/sec MV E/A: 1.4 MVA(P1/2t): 3.8 cm2 MV dec slope: 535.2 cm/sec2 PA V2 max: TR max td: 83.9 cm/sec 208.5 cm/sec PA max PG: TR max P.4 mmHg 2.8 mmHg Left Ventricle The left ventricle is grossly normal size. There is normal left ventricular wall thickness. The left ventricular ejection fraction is normal. Doppler measurements suggest pseudonormalized left ventricular relaxation, which is associated with grade II/IV or mild to moderate diastolic dysfunction. Wall motion cannot be accurately commented on, but no definite regional wall motion abnormalities noted. Right Ventricle The right ventricle is grossly normal size. There is normal right ventricular wall thickness. The right ventricular systolic function is normal. Atria The right atrium is normal in size. The left atrial size is normal. Interarterial septum not well visualized and not well dopplered. Cannot comment on ASD/PFO presence. Mitral Valve The mitral valve is grossly normal. There is no mitral valve stenosis. There is a trace amount of mitral regurgitation. Aortic Valve The aortic valve is grossly normal. There is no aortic valve stenosis. No aortic regurgitation is present. Tricuspid Valve The tricuspid valve is not well visualized, but is grossly normal. There is no tricuspid stenosis. There is a trace or physiologic amount of tricuspid regurgitation. Tricuspid regurgitation jet envelope not well defined to measure RV systolic pressure accurately. Pulmonic Valve The pulmonic valve is not well visualized. Great Vessels The aortic root is not well visualized. The inferior vena cava appeared normal and decreased > 50% with respiration (RAP 5-10 mmHg). Effusions There is no pericardial effusion. Incidental Findings No definite cardiac source of CVA/TIA noted on this particular trans- thoracic study. Consider SHAMAR if clinically indicated. May consider mobile cardiac telemetry monitoring (MCT) for ruling out transient AFIB. : CHELLE MONTES > Irvin Husain
[2016-11-23 15:18] VITALS: BP 113/52
--- NOTE | 2016-11-23 16:51 | PDOC DISCHARGE SUMMARY ---
General - Admit/Disc Date/PCP Admission Date/Primary Care Provider: 11/21/16 23:33 Discharge Date: 11/23/16 - Discharge Diagnosis (1) TIA (transient ischemic attack) Is this a current diagnosis for this admission?: Yes Summary: Aspirin and Plavix. Patient will be set up for an event monitor with Dr. Husain. (2) Anxiety Is this a current diagnosis for this admission?: Yes Summary: Continue home medications (3) Hyperlipidemia Is this a current diagnosis for this admission?: Yes Summary: Continue Statin (4) Hypertension Is this a current diagnosis for this admission?: Yes Summary: Continue home medications (5) Leukocytosis Is this a current diagnosis for this admission?: Yes Summary: Resolved. (6) Lumbago Is this a current diagnosis for this admission?: Yes Summary: Will arrange outpatient PT. Pt given prescription for Lidoderm patches. - Additional Information Resuscitation Status: Full Code Discharge Diet: Cardiac Discharge Activity: Activity As Tolerated Home Medications: Losartan Potassium [Cozaar 50 mg Tablet] 50 mg PO DAILY 11/22/16 Montelukast Sodium [Singulair 10 mg Tablet] 10 mg PO QHS 11/22/16 Simvastatin [Zocor 40 mg Tablet] 40 mg PO QHS 11/22/16 Aspirin [Ecotrin 81 mg EC Tablet] 81 mg PO DAILY tabec 11/23/16 Clopidogrel Bisulfate [Plavix 75 mg Tablet] 75 mg PO DAILY #30 tablet 11/23/16 Lidocaine [Lidoderm 5% (700 mg) Transdermal Patch] 2 patch TP DAILY #30 adh..patch 11/23/16 History of Present Illness History of Present Illness: ERIC RCIHTER is a 66 year old female with left facial weakness. Hospital Course Hospital Course: Patient is a 66-year-old female who presents to our facility with complaint of left-sided facial weakness and drooping. Patient states that she had had this happen before in the past. When patient arrived to the emergency room patient' s symptoms had resolved. Patient had MRI carotid ultrasound 2D echo that did not reveal any significant findings. Decision was made for patient to have event monitor done as outpatient to evaluate for possible paroxysmal atrial fibrillation. While patient was hospitalized here on telemetry patient had no episodes of arrhythmias. Patient was placed on aspirin and Plavix at time of discharge. Patient complained of back pain which was musculoskeletal patient was given prescription for outpatient PT and Lidoderm patches. Physical Exam Vital Signs: Temp Pulse Resp BP Pulse Ox 99.0 F 63 16 113/52 L 98 11/23/16 15:17 11/23/16 15:17 11/23/16 15:17 11/23/16 15:17 11/23/16 15:17 Intake & Output 11/22/16 11/23/16 11/24/16 06:59 06:59 06:59 Intake Total 25 1200 Output Total 0 Balance 25 1200 Weight 83.1 kg 83 kg General appearance: PRESENT: no acute distress, well-developed, well-nourished Head exam: PRESENT: atraumatic, normocephalic Eye exam: PRESENT: conjunctiva pink, EOMI. ABSENT: scleral icterus Ear exam: PRESENT: normal external ear exam Mouth exam: PRESENT: dry mucosa Neck exam: ABSENT: carotid bruit, JVD, lymphadenopathy, thyromegaly Respiratory exam: PRESENT: clear to auscultation [place]. ABSENT: rales, rhonchi, wheezes Cardiovascular exam: PRESENT: RRR. ABSENT: diastolic murmur, rubs, systolic murmur Pulses: PRESENT: normal dorsalis pedis pul Vascular exam: PRESENT: normal capillary refill GI/Abdominal exam: PRESENT: normal bowel sounds, soft. ABSENT: distended, guarding, mass, organolmegaly, rebound, tenderness Rectal exam: PRESENT: deferred Extremities exam: PRESENT: full ROM. ABSENT: calf tenderness, clubbing, pedal edema Musculoskeletal exam: PRESENT: other - +Right Lumbar Neurological exam: PRESENT: alert, awake, oriented to person, oriented to place , oriented to time, oriented to situation, CN II-XII grossly intact. ABSENT: motor sensory deficit Psychiatric exam: PRESENT: appropriate affect, normal mood. ABSENT: homicidal ideation, suicidal ideation Skin exam: PRESENT: dry, intact, warm. ABSENT: cyanosis, rash Results Laboratory Results: 11/22/16 05:17 11/22/16 05:17 Impressions: Chest X-Ray 11/21/16 21:25 IMPRESSION: NO ACUTE RADIOGRAPHIC FINDING IN THE CHEST. Head CT 11/21/16 21:25 IMPRESSION: Limited negative study Carotid Doppler Study 11/22/16 00:00 IMPRESSION: NO HEMODYNAMICALLY SIGNIFICANT STENOSIS. Head MRI 11/22/16 00:00 IMPRESSION: NORMAL MRI OF THE BRAIN WITHOUT INTRAVENOUS GADOLINIUM CONTRAST. EVIDENCE OF ACUTE STROKE: NO.
== END 2016-11-23 15:59 | disposition home or self-care (01) ==
LOC: ER 21:21 → EH 23:33 → UNDOADMOB 23:40 → 3N 11-22 03:15 → EH 11-22 03:15
PROVIDERS: ADMIT Internal Medicine; ATTEND Internal Medicine
DX: G45.9 Transient cerebral ischemic attack, unspecified (principal); F41.9 Anxiety disorder, unspecified; E78.5 Hyperlipidemia, unspecified; I10 Essential (primary) hypertension; D72.829 Elevated white blood cell count, unspecified; M54.5 Low back pain; E11.9 Type 2 diabetes mellitus without complications; R10.9 Unspecified abdominal pain; R32 Unspecified urinary incontinence; E66.9 Obesity, unspecified; Z90.49 Acquired absence of other specified parts of digestive tract; Z90.710 Acquired absence of both cervix and uterus; Z82.3 Family history of stroke; Z79.82 Long term (current) use of aspirin; Z79.899 Other long term (current) drug therapy; Z87.19 Personal history of other diseases of the digestive system; Z68.39 Body mass index [BMI] 39.0-39.9, adult
CPT/HCPCS: 93005; 99285; 36415 ×2; 82553; 82962 ×2; 82550; 83735; 84443; 85025 ×2; 85610; 85730; 80048; 80053; 84484; 83036; 80061; 93306; 93880; 70551; 71010; 70450; 93010; G0378 ×3; A9270 ×6; J1644 ×2; C9113; J3490 ×2; S0164

== ENCOUNTER → 2017-06-29 | Outpatient (CLI) | payer MEDICARE ==
--- NOTE | 2017-06-29 16:56 | WOMENS IMAGING REPORT ---
EXAM DESCRIPTION: 3D SCREENING MAMMO BILAT COMPLETED DATE/TIME: 06/29/2017 10:08 am REASON FOR STUDY: ROUTINE SCREENING;Z12.31 Z12.31 ENCNTR SCREEN MAMMOGRAM FOR MALIGNANT NEOPLASM OF SAPPHIRE COMPARISON: 2014, 2016 TECHNIQUE: Standard craniocaudal and mediolateral oblique views of each breast recorded using digita l acquisition and breast tomosynthesis. LIMITATIONS: None. FINDINGS: RIGHT BREAST MASSES: No suspicious masses. CALCIFICATIONS: No new or suspicious calcifications. ARCHITECTURAL DISTORTION: None. DEVELOPING DENSITY: Developing density seen only on the CC view slightly lateral 8 cm from the nipple ASYMMETRY: None noted. OTHER: No other significant findings. LEFT BREAST MASSES: No suspicious masses. CALCIFICATIONS: No new or suspicious calcifications. ARCHITECTURAL DISTORTION: None. DEVELOPING DENSITY: None. ASYMMETRY: None noted. OTHER: No other significant findings. Read with the assistance of CAD. .[facility] - R2 Cenova Version 1.3 .[facility] Imaging - R2 Cenova Version 1.3 .[facility] Imaging - R2 Cenova Version 2.4 .[facility] [place] Cenova Version 2.4 .[facility] - R2 Music Historian Version 9.2 IMPRESSION: Developing density right breast BREAST DENSITY: b. There are scattered areas of fibroglandular density. BIRAD: 0 Incomplete: Needs Additional Imaging Evaluation and/or prior Mammograms for Comparison. RECOMMENDATION: RECOMMENDED FOLLOW-UP: Spot compression with ultrasound if indicated. The patient will be contacted for additional imaging. COMMENT: The patient has been notified of the results by letter per [place] requirements. Additional no tification policies are in place for contacting patient with suspicious or incomplete findings. Quality ID #225: The [place] [employer] recommends an annual screening mammogram for women aged 40 years or over. This facility utilizes a reminder system to ensure that all patients receive reminder letters, and/or direct phone calls for appointments. This includes reminders for routine scr eening mammograms, diagnostic mammograms, or other Breast Imaging Interventions when appropriate. Th is patient will be placed in the appropriate reminder system. The [place] [employer] (ACR) has developed recommendations for screening MRI of the breast s in certain patient populations, to be used in conjunction with mammography. Breast MRI surveillanc e may be appropriate for women with more than 20% lifetime risk of developing breast cancer as deter mined by genetic testing, significant family history of the disease, or history of mantle radiation f or Hodgkins Disease. ACR Practice Guidelines 2008. DBT Technology DBT is a type of tomographic mammography. With conventional mammography, overlapping breast tissue ma y make lesions difficult to detect, even with good compression. DBT uses an x-ray tube that rotates a round the breast, taking images at different angles. These images are then combined to create thin sl ices of the breast that the radiologist can view as a 3D reconstruction. The [employer] unit can perform full-field digital mammograms (2D imaging); or DBT (3D imaging); or both, in a combination mode that quickly performs both the mammogram and the tomosynthesis scan while the breast is still compressed. PQRS 6045F: Fluoroscopic imaging is not utilized for breast tomosynthesis. TECHNICAL DOCUMENTATION: FINDING NUMBER: (1) ASSESSMENT: (1) JOB ID: [id number] [employer]- All Rights Reserved Reading location - IP/workstation name: [email or web address]
== END ==
LOC: WI 09:39
PROVIDERS: ATTEND Physician Assistant Medical
DX: Z12.31 Encounter for screening mammogram for malignant neoplasm of breast (principal); R92.2 Inconclusive mammogram
CPT/HCPCS: 77063; 77067

== ENCOUNTER → 2017-07-08 | Outpatient (CLI) | payer MEDICARE ==
--- NOTE | 2017-07-08 11:10 | WOMENS IMAGING REPORT ---
EXAM DESCRIPTION: RIGHT DIAGNOSTIC MAMMO W/CAD; U/S BREAST UNILAT LIMITED COMPLETED DATE/TIME: 07/08/2017 8:44 am; 07/08/2017 9:12 am REASON FOR STUDY: INCONCLUSIVE; R92.2; RIGHT BREAST; 92.2 R92.2 INCONCLUSIVE MAMMOGRAM COMPARISON: Mammograms since 2014 TECHNIQUE: Cone compression and mediolateral oblique images of the breast recorded with digital acqu isition. Right whole breast 90 mediolateral view. Right breast ultrasound. LIMITATIONS: None. FINDINGS: BREAST: Right MASSES: Low-density well-circumscribed mammographic nodule in the deep central right breast lower out er quadrant, about the 8 o'clock position. This is 8 cm from the nipple, and measures about 1 cm in size. This was subsequently shown to represent a breast parenchymal cyst. CALCIFICATIONS: No new or suspicious calcifications. ARCHITECTURAL DISTORTION: None. DEVELOPING DENSITY: None. ASYMMETRY: None noted. OTHER: No other significant findings. Read with the assistance of CAD. .[facility] - R2 Cenova Version 1.3 .[facility] Imaging - R2 Cenova Version 1.3 .[facility] Imaging - R2 Cenova Version 2.4 .[facility] [place] R2 Cenova Version 2.4 .[facility] - R2 Online Media [employer]er Version 9.2 Right breast ultrasound: In the deep central right breast, about 8 cm from the nipple, a well-circumscribed anechoic cyst is p resent measuring 9 mm in diameter. This is a benign finding and correlates with the mammographic fin dings. No further specific workup. IMPRESSION: Breast cyst, deep right 7 to 8 o'clock position, benign. BREAST DENSITY: a. The breasts are almost entirely fatty. BIRAD: 2 Benign findings. RECOMMENDATION: RECOMMENDED FOLLOW UP: Please continue yearly bilateral screening mammography/ tomos ynthesis in July 2018 SPECIFIC INTERVENTION/IMAGING/CONSULTATION RECOMMENDED:No additional intervention/ imaging/consultati on needed at this time. COMMUNICATION:Patient notified by letter COMMENT: The patient has been notified of the results by letter per MQSA requirements. Additional no tification policies are in place for contacting patient with suspicious or incomplete findings. Quality ID #225: The [employer] recommends an annual screening mammogram for women aged 40 years or over. This facility utilizes a reminder system to ensure that all patients receive reminder letters, and/or direct phone calls for appointments. This includes reminders for routine scr eening mammograms, diagnostic mammograms, or other Breast Imaging Interventions when appropriate. Th is patient will be placed in the appropriate reminder system. The [place] [employer] (ACR) has developed recommendations for screening MRI of the breast s in certain patient populations, to be used in conjunction with mammography. Breast MRI surveillanc e may be appropriate for women with more than 20% lifetime risk of developing breast cancer as deter mined by genetic testing, significant family history of the disease, or history of mantle radiation f or Hodgkins Disease. ACR Practice Guidelines 2008. TECHNICAL DOCUMENTATION: FINDING NUMBER: (1) ASSESSMENT: (1) JOB ID: [id number] [employer]- All Rights Reserved Reading location - IP/workstation name: [email or web address]
--- NOTE | 2017-07-08 11:10 | WOMENS IMAGING REPORT ---
EXAM DESCRIPTION: RIGHT DIAGNOSTIC MAMMO W/CAD; U/S BREAST UNILAT LIMITED COMPLETED DATE/TIME: 07/08/2017 8:44 am; 07/08/2017 9:12 am REASON FOR STUDY: INCONCLUSIVE; R92.2; RIGHT BREAST; 92.2 R92.2 INCONCLUSIVE MAMMOGRAM COMPARISON: Mammograms since 2014 TECHNIQUE: Cone compression and mediolateral oblique images of the breast recorded with digital acqu isition. Right whole breast 90 mediolateral view. Right breast ultrasound. LIMITATIONS: None. FINDINGS: BREAST: Right MASSES: Low-density well-circumscribed mammographic nodule in the deep central right breast lower out er quadrant, about the 8 o'clock position. This is 8 cm from the nipple, and measures about 1 cm in size. This was subsequently shown to represent a breast parenchymal cyst. CALCIFICATIONS: No new or suspicious calcifications. ARCHITECTURAL DISTORTION: None. DEVELOPING DENSITY: None. ASYMMETRY: None noted. OTHER: No other significant findings. Read with the assistance of CAD. .[facility] - R2 Cenova Version 1.3 .[facility] Imaging - R2 Cenova Version 1.3 .[facility] - R2 Cenova Version 2.4 .[facility] - R2 Cenova Version 2.4 .[facility]EDS AT THE [facility] - R2 [employer] Version 9.2 Right breast ultrasound: In the deep central right breast, about 8 cm from the nipple, a well-circumscribed anechoic cyst is p resent measuring 9 mm in diameter. This is a benign finding and correlates with the mammographic fin dings. No further specific workup. IMPRESSION: Breast cyst, deep right 7 to 8 o'clock position, benign. BREAST DENSITY: a. The breasts are almost entirely fatty. BIRAD: 2 Benign findings. RECOMMENDATION: RECOMMENDED FOLLOW UP: Please continue yearly bilateral screening mammography/ tomos ynthesis in July 2018 SPECIFIC INTERVENTION/IMAGING/CONSULTATION RECOMMENDED:No additional intervention/ imaging/consultati on needed at this time. COMMUNICATION:Patient notified by letter COMMENT: The patient has been notified of the results by letter per MQSA requirements. Additional no tification policies are in place for contacting patient with suspicious or incomplete findings. Quality ID #225: The [employer] recommends an annual screening mammogram for women aged 40 years or over. This facility utilizes a reminder system to ensure that all patients receive reminder letters, and/or direct phone calls for appointments. This includes reminders for routine scr eening mammograms, diagnostic mammograms, or other Breast Imaging Interventions when appropriate. Th is patient will be placed in the appropriate reminder system. The [employer] (ACR) has developed recommendations for screening MRI of the breast s in certain patient populations, to be used in conjunction with mammography. Breast MRI surveillanc e may be appropriate for women with more than 20% lifetime risk of developing breast cancer as deter mined by genetic testing, significant family history of the disease, or history of mantle radiation f or Hodgkins Disease. ACR Practice Guidelines 2008. TECHNICAL DOCUMENTATION: FINDING NUMBER: (1) ASSESSMENT: (1) JOB ID: [id number] [employer]- All Rights Reserved Reading location - IP/workstation name: [facility]-[email or web address]
== END ==
LOC: WI 08:26
PROVIDERS: ATTEND Physician Assistant Medical
DX: N60.01 Solitary cyst of right breast (principal)
CPT/HCPCS: 76642